=== PATIENT | female | born 1960 | race Caucasian/White ===

== ENCOUNTER 2017-04-14 12:53 | Emergency (ER) | payer SELFPAY ==
[~2017-04-14] VITALS: Ht 157.5 cm; Wt 59.1 kg
[~2017-04-14 12:53] MED LIST: FLEXERIL 1010 MG/TAB PO; IBU800 M1 PO; MOTRIN 800800 MG/TAB PO; NORCO 325 MG-51 TAB PO; PEPCID 20MG TAB20 MG PO; ULTRAM 50MG TAB50 MG PO; ZANTAC 150MG T150 MG PO; ZOFRAN 4MG T4 MG/TAB PO
[2017-04-14 12:56] VITALS: BP 133/96; PULSE 107; TEMP 97.5
[2017-04-14] MEDS ORDERED: POLYMYXIN B/TRIMETH OU (14:02)
== END 2017-04-14 14:14 | disposition home or self-care (01) ==
LOC: COL.ER 12:53
DX: H10.9 Unspecified conjunctivitis (principal)

== ENCOUNTER 2017-10-14 15:20 | Emergency (ER) | payer SELFPAY ==
[~2017-10-14] VITALS: Ht 157.5 cm; Wt 59.1 kg
[~2017-10-14 15:20] MED LIST changes: +POLYMYXIN B/TRIMETH OU
[2017-10-14 15:27] VITALS: TEMP 97.4
[2017-10-14 16:17] LABS: BASO % 0.3 % (0.0-2.0); EOS % 0.2 % (0-4.0); GRAN # 10.6 (1.4-6.5); GRAN % 88.3 % (42.2-75.2); HEMATOCRIT 48.1 % (37.0-47.0); HEMOGLOBIN 16.2 g/dl (12.5-16.0); MEAN CELL VOLUME 93 fl (80.0-100.0); MEAN CORPUSCULAR HEMOGLOBIN 31 pg (27.0-31.0); MEAN CORPUSCULAR HGB CONC 34 g/dl (33.0-37.0); MEAN PLATELET VOLUME 12.1 fl (7.4-10.4); MONO # 0.4 (0.1-0.6); MONO % 2.9 % (1.7-9.3); PLATELET COUNT 285 K/mm3 (130-400); RED BLOOD COUNT 5.17 M/mm3 (4.10-5.30); REDCELL DISTRIBUTION WIDTH-CV 13.1 % (11.5-14.5)
[2017-10-14 16:43] LABS: ALANINE AMINOTRANSFERASE 24 U/L (9-52); ALBUMIN 4.7 gm/dL (3.5-5.0); ALKALINE PHOSPHATASE 79 U/L (50-136); ANION GAP 19 mmol/L (7-16); AST,SGOT 31 U/L (15-37); BILIRUBIN,TOTAL 0.8 mg/dL (0.0-1.0); BLOOD UREA NITROGEN 15 mg/dL (7-17); CALCIUM 9.8 mg/dL (8.4-10.2); CARBON DIOXIDE 22 mmol/L (22-30); CHLORIDE 104 mmol/L (98-107); CREATININE, serum 1.01 mg/dL (0.52-1.25); GLUCOSE 126 mg/dL (74-106); POTASSIUM 4.3 mmol/L (3.4-5.0); SODIUM 145 mmol/L (137-145); TOTAL PROTEIN 8.2 gm/dL (6.4-8.2)
[2017-10-14 16:46] LABS: C-REACTIVE PROTEIN < 0.5 mg/dL (0.0-0.9)
[2017-10-14 18:39] LABS: COLLECTION METHOD CLEAN CATCH
[2017-10-14 18:56] LABS: MUCOUS Present /lpf; PH 6 (5-8); URINE APPEARANCE Clear; URINE BACTERIA None Seen /hpf; URINE BILIRUBIN Negative (NEGATIVE); URINE BLOOD 1+ (NEGATIVE); URINE COLOR Yellow; URINE GLUCOSE Negative (NEGATIVE); URINE KETONE 1+ (NEGATIVE); URINE LEUKOCYTE ESTERASE Negative (NEGATIVE); URINE NITRATE Negative (NEGATIVE); URINE PROTEIN(semi-quant) 1+ (NEGATIVE); URINE UROBILINOGEN Negative (NEGATIVE)
[2017-10-14] MEDS ORDERED: FLOMAX 0.40.4 MG/CAP PO (19:16)
[2017-10-14] MEDS ORDERED: PERCOCET 325 MG1 TA2 PO (19:16)
[2017-10-14] MEDS ORDERED: CEFTIN500 MG PO (19:16)
[2017-10-14 19:40] VITALS: BP 127/66; PULSE 95
== END 2017-10-14 19:40 | disposition home or self-care (01) ==
LOC: COL.ER 15:20
PROVIDERS: Emergency Medicine
DX: N20.2 Calculus of kidney with calculus of ureter (principal); Z90.710 Acquired absence of both cervix and uterus; Z98.890 Other specified postprocedural states
CPT/HCPCS: J0696; J1885; J2405; J3010; J7030; Q9967

== ENCOUNTER 2019-05-01 15:27 | Emergency (ER) | payer SELFPAY ==
[~2019-05-01] VITALS: Ht 157.5 cm; Wt 54.5 kg
[~2019-05-01 15:27] MED LIST changes: +CEFTIN500 MG PO; +FLOMAX 0.40.4 MG/CAP PO; +PERCOCET 325 MG1 TA2 PO
[2019-05-01 15:33] VITALS: BP 135/76; TEMP 97.3
[2019-05-01] MEDS ORDERED: FLEXERIL 1010 MG/TAB PO (16:38)
[2019-05-01] MEDS ORDERED: LIDODERM 5% PATC1 EA TP (16:38)
[2019-05-01 18:03] VITALS: PULSE 93
== END 2019-05-01 18:02 | disposition home or self-care (01) ==
LOC: COL.ER 15:27
DX: S39.012A Strain of muscle, fascia and tendon of lower back, initial encounter (principal); F17.210 Nicotine dependence, cigarettes, uncomplicated; W01.0XXA Fall on same level from slipping, tripping and stumbling without subsequent striking against object, initial encounter
CPT/HCPCS: J1885

== ENCOUNTER 2019-05-11 19:16 | Emergency (ER) | payer SELFPAY ==
[~2019-05-11] VITALS: Ht 157.5 cm; Wt 54.5 kg
[~2019-05-11 19:16] MED LIST changes: +LIDODERM 5% PATC1 EA TP
[2019-05-11 19:44] VITALS: BP 144/65; TEMP 98.6
[2019-05-11 21:45] VITALS: PULSE 78
== END 2019-05-11 21:49 | disposition home or self-care (01) ==
LOC: COL.ER 19:16
DX: M50.30 Other cervical disc degeneration, unspecified cervical region (principal); R51 Headache; W19.XXXA Unspecified fall, initial encounter; F17.210 Nicotine dependence, cigarettes, uncomplicated

== ENCOUNTER 2019-05-26 08:04 | Emergency (ER) | payer SELFPAY ==
[~2019-05-26] VITALS: Ht 157.5 cm; Wt 54.5 kg
[2019-05-26 08:10] VITALS: TEMP 98
[2019-05-26] MEDS ORDERED: FLEXERIL 1010 MG/TAB PO (08:18)
[2019-05-26 08:36] LABS: BASO # 0.1 (0.0-0.2); BASO % 1.3 % (0.0-2.0); EOS # 0.3 (0.0-0.7); EOS % 4.7 % (0-4.0); GRAN # 4.4 (1.4-6.5); GRAN % 64.9 % (42.2-75.2); HEMATOCRIT 46.4 % (37.0-47.0); HEMOGLOBIN 15.3 g/dl (12.5-16.0); LYMPH # 1.4 (1.2-3.4); LYMPH % 21.4 % (20.0-51.0); MEAN CELL VOLUME 94 fl (80.0-100.0); MEAN CORPUSCULAR HEMOGLOBIN 31 pg (27.0-31.0); MEAN CORPUSCULAR HGB CONC 33 g/dl (33.0-37.0); MONO # 0.5 (0.1-0.6); MONO % 7.6 % (1.7-9.3); PLATELET COUNT 276 K/mm3 (130-400); RED BLOOD COUNT 4.92 M/mm3 (4.10-5.30); REDCELL DISTRIBUTION WIDTH-CV 13.2 % (11.5-14.5)
[2019-05-26 08:58] LABS: ALANINE AMINOTRANSFERASE 15 U/L (9-52); ALBUMIN 4.7 gm/dL (3.5-5.0); ALKALINE PHOSPHATASE 103 U/L (50-136); ANION GAP 10 mmol/L (7-16); AST,SGOT 22 U/L (15-37); BILIRUBIN,TOTAL 0.5 mg/dL (0.0-1.0); BLOOD UREA NITROGEN 13 mg/dL (7-17); C-REACTIVE PROTEIN < 0.5 mg/dL (0.0-0.9); CALCIUM 9.3 mg/dL (8.4-10.2); CARBON DIOXIDE 28 mmol/L (22-30); CHLORIDE 106 mmol/L (98-107); CREATININE, serum 0.94 (0.52-1.25); GLUCOSE 89 mg/dL (74-106); POTASSIUM 4.3 mmol/L (3.4-5.0); SODIUM 143 mmol/L (137-145); TOTAL PROTEIN 7.9 gm/dL (6.4-8.2)
[2019-05-26 09:09] LABS: TROPONIN-I < 0.012 ng/mL (0.000-0.035)
[2019-05-26 09:35] VITALS: BP 130/78; PULSE 107
[2019-05-26 11:05] LABS: ERYTHROCYTE SEDIMENTATION RATE 4 mm/hr (0-30)
== END 2019-05-26 09:35 | disposition home or self-care (01) ==
LOC: COL.ER 08:04
PROVIDERS: Physician Assistant
DX: R07.89 Other chest pain (principal); Z90.710 Acquired absence of both cervix and uterus; Z98.51 Tubal ligation status; Z98.890 Other specified postprocedural states

== ENCOUNTER 2021-05-09 20:33 | Emergency (ER) | payer SELFPAY ==
[~2021-05-09] VITALS: Ht 157.5 cm; Wt 59.1 kg
[2021-05-09 20:42] VITALS: TEMP 98.1
[2021-05-09 21:12] LABS: BASO # 0.1 K/mm3 (0.0-0.2); BASO % 0.9 % (0.0-2.0); EOS # 0.2 K/mm3 (0.0-0.7); EOS % 3.4 % (0.0-4.0); GRAN # 3.8 K/mm3 (1.4-6.5); GRAN % 58.5 % (42.2-75.2); HEMATOCRIT 44.9 % (37.0-47.0); HEMOGLOBIN 14.8 g/dl (12.5-16.0); LYMPH % 30.5 % (20.0-51.0); MEAN CELL VOLUME 95 fl (80.0-100.0); MEAN CORPUSCULAR HEMOGLOBIN 31 pg (27-31); MEAN CORPUSCULAR HGB CONC 33 g/dl (33.0-37.0); MEAN PLATELET VOLUME 11.3 fl (7.4-10.4); MONO # 0.4 K/mm3 (0.1-0.6); MONO % 6.5 % (1.7-9.3); PLATELET COUNT 318 K/mm3 (130-400); RED BLOOD COUNT 4.72 M/mm3 (4.10-5.30); REDCELL DISTRIBUTION WIDTH-CV 13.6 % (11.5-14.5)
[2021-05-09 21:30] LABS: ALANINE AMINOTRANSFERASE 20 U/L (0-55); ALBUMIN 4.1 gm/dL (3.5-5.0); ALKALINE PHOSPHATASE 103 U/L (40-150); ANION GAP 15 mmol/L (7-16); AST,SGOT 33 U/L (5-34); BILIRUBIN,TOTAL 0.9 mg/dL (0.2-1.2); BLOOD UREA NITROGEN 11 mg/dL (10-20); CARBON DIOXIDE 21 mmol/L (22-29); CHLORIDE 107 mmol/L (98-107); CREATINE KINASE 101 U/L (29-168); CREATININE, serum 0.89 mg/dL (0.57-1.11); GLUCOSE 86 mg/dL (70-99); LIPASE 33 U/L (8-78); POTASSIUM 3.7 mmol/L (3.5-4.5); SODIUM 143 mmol/L (136-145); TOTAL PROTEIN 7.3 gm/dL (6.2-8.1)
[2021-05-09 21:40] LABS: TROPONIN-I < 0.010 ng/mL (0.00-0.033)
[2021-05-09 22:53] VITALS: BP 152/99; PULSE 99
== END 2021-05-09 22:53 | disposition home or self-care (01) ==
LOC: COL.ER 20:33
PROVIDERS: Emergency Medicine
DX: R07.2 Precordial pain (principal)
CPT/HCPCS: J1885; J7030